=== PATIENT | male | born 1950 | race Caucasian/White ===

== ENCOUNTER 2019-04-19 11:16 | Day surgery (SDC) | payer MEDICARE, MEDICAID, SELFPAY ==
--- NOTE | 2019-04-19 | PATH_ITS ---
[facility] Accession Number: [id number] . 01 Material submitted: . PART A: colon - ASCENDING COLON POLYP PART B: colon - TRANSVERSE COLON POLYP PART C: colon - SIGMOID COLON POLYP . 02 Diagnosis: A. Ascending Colon Polyp, Biopsy: Tubular adenoma. . B. Transverse Colon, Polyp, Biopsy: Tubular adenoma. . C. Sigmoid Colon, Polyp, Biopsy: Tubular adenoma. MRV 04/20/2019 1304 Local . 02 Electronically signed: . Naomi Seaman MD, Pathologist NPI- [id number] . 01 Gross description: . Part A: ASCENDING COLON POLYP: Received in formalin are 2 fragment(s) of paredes, soft tissue measuring 0.2 x 0.2 x 0.2 cm to 0.3 x 0.2 x 0.2 cm submitted entirely in 1 cassette(s) Part B: TRANSVERSE COLON POLYP: Received in formalin are 3 fragment(s) of paredes, soft tissue measuring 0.1 x 0.1 x 0.1 cm to 0.3 x 0.2 x 0.2 cm submitted entirely in 1 cassette(s) Part C: SIGMOID COLON POLYP: Received in formalin is 1 fragment(s) of paredes, soft tissue measuring 0.3 x 0.2 x 0.2 cm submitted entirely in 1 cassette(s) /[facility] 04/19/2019 2229 Local . 02 Pathologist provided ICD-10: D12.2, D12.3, D12.5 . 02 CPT . 697680, 951461, 801234 Specimen Comment: A duplicate report has been generated due to demographic updates. Performed at: [address] [facility] [address], [place], [place] [id number] MD Stephane Wilson MD Phone: [phone] Performed at: 02 [facility] [id number] [place] [id number] MD Naomi Seaman MD Phone: [phone]
[2019-04-19 12:38] VITALS: BP 135/74; PULSE 78; RESP 16; TEMP 36.2; O2SAT 97; BMI 25.9
--- NOTE | 2019-04-19 12:54 | SUR.PREOP ---
Regarding med reconciliation, patient came in with list of meds, but no doses or times. Added med list with patient's best guess for doses.
[2019-04-19] MEDS: SODIUM CHLORIDE 0.9% 1,000 ML 21 ML IV (12:55)
--- NOTE | 2019-04-19 13:23 | PM.HP.1 ---
History of Present Illness History of Present Illness Date Patient Seen: 04/19/19 Time Patient Seen: 13:24 Chief complaint: [id number] Colonoscopy Narrative: History of large adenomatous polyps Patient History Medical History (Updated 04/19/19 @ 13:25 by Qamar Freeman MD) Bipolar 1 disorder (Acute) Family & Social History Social History: household members spouse Meds Home Medications and Allergies Home Medications Medication Instructions Recorded Confirmed Type aspirin 81 mg PO DAILY 04/19/19 04/19/19 History atorvastatin 20 mg PO BEDTIME 04/19/19 04/19/19 History bupropion HCl 75 mg PO DAILY 04/19/19 04/19/19 History esomeprazole magnesium [Nexium] 40 mg PO DAILY 04/19/19 04/19/19 History gabapentin 300 mg PO BID 04/19/19 04/19/19 History linaclotide [Linzess] 145 mcg PO DAILY 04/19/19 04/19/19 History magnesium 30 mg PO DAILY 04/19/19 04/19/19 History paroxetine HCl 25 mg PO DAILY 04/19/19 04/19/19 History risperidone 0.25 mg PO BEDTIME 04/19/19 04/19/19 History trazodone 50 mg PO BEDTIME 04/19/19 04/19/19 History Allergies Allergy/AdvReac Type Severity Reaction Status Date / Time No Known Drug Allergies Allergy Verified 04/19/19 12:46 Exam Vital Signs (past 8 hours): - 04/19/19 12:38 Temperature 97.1 F Pulse Rate 78 Respiratory Rate 16 Blood Pressure 135/74 Pulse Oximetry 97 Oxygen Delivery Method Room Air Oxygen Flow Rate 0 Narrative Exam Narrative: Oropharynx free of lesions Chest clear to auscultation percussion Cardiac exam reveals no S3 or murmur Assessment & Plan Assessment & Plan narrative: Follow-up screening colonoscopy for history of polyps. Risks, benefits, alternatives explained.
--- NOTE | 2019-04-19 13:25 | PM.OP.ENDO ---
Operative Date/Time/Diagnoses Date of procedure: 04/19/19 Time of procedure: 13:25 Pre-op diagnosis: See indication and findings Procedure & Clinicians Study performed: Colonoscopy Indications: History of polyps Surgeon: Qamar Freeman Procedure Notes Procedure in detail: After informed consent was obtained the patient was placed in left lateral decubitus position. The video colonoscope was introduced the rectum slowly advanced to the cecum. Preparation was good. On slow withdrawal mucosa was carefully examined. Scope was removed. The patient tolerated procedure well. Blood loss none Complications none Sedation Total sedation time 24 minutes Versed 3 mg fentanyl 100 mg IV titration Findings 1. Scattered diverticulosis in the sigmoid colon 2. 8 mm ascending colon polyp snared with sid snare and removed completely 3. 5 mm colon polyp in the transverse colon Jumbo biopsy removed completely 4. 5 mm polyp in the sigmoid colon Jumbo biopsy removed completely 5. Tattoo without any residual polyp at the hepatic flexure 6. Otherwise negative colonoscopy to cecum I expect these will all be adenomatous polyps and he will need follow-up colonoscopy in 3 years.
[2019-04-19] MEDS: fentaNYL 250 MCG/5 ML INJ IV (14:08)
[2019-04-19] MEDS: MIDAZOLAM 5 MG/5 ML VIAL IV (14:09)
[2019-04-19 14:35] VITALS: BP 122/73; PULSE 88; RESP 96; TEMP 37.2; O2SAT 14
[2019-04-19 14:40] VITALS: BP 131/75; PULSE 86; RESP 12; O2SAT 95
[2019-04-19 14:45] VITALS: BP 129/79; PULSE 87; RESP 9; O2SAT 95
[2019-04-19 15:00] VITALS: BP 127/73; PULSE 91; RESP 17; O2SAT 94
[2019-04-19 15:36] VITALS: BP 141/95; PULSE 80; RESP 20; TEMP 37.2; O2SAT 96
== END 2019-04-19 15:35 | disposition home or self-care (01) ==
PROVIDERS: PCP Physician Assistant Medical; Visit Provider Internal Medicine Gastroenterology
PROC: 0DJD8ZZ Inspection of Lower Intestinal Tract, Via Natural or Artificial Opening Endoscopic (ICD-10-PCS; CPT 45378; principal; 2019-04-19 13:30)
DX: Z86.010 Personal history of colon polyps (principal); Z12.11 Encounter for screening for malignant neoplasm of colon; K59.09 Other constipation; E78.5 Hyperlipidemia, unspecified; K21.9 Gastro-esophageal reflux disease without esophagitis; K57.30 Diverticulosis of large intestine without perforation or abscess without bleeding; D12.0 Benign neoplasm of cecum; D12.5 Benign neoplasm of sigmoid colon; D12.3 Benign neoplasm of transverse colon
CPT/HCPCS: 45385; 45380; J2250; J3010

== ENCOUNTER → 2022-04-28 11:15 | Outpatient (CLI) | payer MEDICARE, MEDICAID, SELFPAY ==
[2022-04-28 12:48] LABS: COVID19 -Nasal RAPID Negative (Negative)
== END ==
PROVIDERS: PCP Physician Assistant Medical; Visit Provider Surgery
DX: Z01.812 Encounter for preprocedural laboratory examination (principal); Z20.822 Contact with and (suspected) exposure to COVID-19
CPT/HCPCS: 87635; C9803

== ENCOUNTER 2022-04-29 08:52 | Day surgery (SDC) | payer MEDICARE, MEDICAID, SELFPAY ==
--- NOTE | 2022-04-29 | PATH_ITS ---
[facility] Accession Number: [id number] . 01 Material submitted: . colon - COLON POLYP AT 40CM . 01 Diagnosis: Colon Polyp at 40 cm, Biopsy: Tubular adenoma. MRV 04/30/2022 1607 Local . 01 Electronically signed: . Kiana Alejandro MD, Pathologist NPI- [id number] . 01 Gross description: . COLON POLYP AT 40CM: Received in formalin are 3 fragment(s) of paredes, soft tissue measuring 0.2 x 0.2 x 0.1 cm to 0.3 x 0.3 x 0.2 cm submitted entirely in 1 cassette(s) /[facility] 04/29/2022 2314 Local . 01 Pathologist provided ICD-10: D12.6 . 01 CPT . 452516 Specimen Comment: A courtesy copy of this report has been sent to [phone] Performed at: 01 [facility] [address] [place] [address], [place], [place] [id number] MD Stephane Wilson MD Phone: [phone]
--- NOTE | 2022-04-29 09:38 | PM.HP.1 ---
History of Present Illness History of Present Illness Date Patient Seen: 04/29/22 Chief complaint: Colonoscopy Narrative: History of colon polyps Patient History Medical History (Updated 04/19/19 @ 13:25 by Qamar Freeman MD) Bipolar 1 disorder Family & Social History Social History: household members spouse Meds Home Medications and Allergies Home Medications Medication Instructions Recorded Confirmed Type aspirin 81 mg tablet,delayed 81 mg PO DAILY 04/19/19 04/19/19 History release atorvastatin 20 mg tablet 20 mg PO BEDTIME 04/19/19 04/19/19 History bupropion HCl 75 mg tablet 75 mg PO DAILY 04/19/19 04/19/19 History esomeprazole magnesium 40 mg 40 mg PO DAILY 04/19/19 04/19/19 History capsule,delayed release (Nexium) gabapentin 300 mg capsule 300 mg PO BID 04/19/19 04/19/19 History linaclotide 145 mcg capsule 145 mcg PO DAILY 04/19/19 04/19/19 History (Linzess) magnesium 30 mg tablet 30 mg PO DAILY 04/19/19 04/19/19 History paroxetine HCl 25 mg 25 mg PO DAILY 04/19/19 04/19/19 History tablet,extended release 24 hr risperidone 0.25 mg tablet 0.25 mg PO BEDTIME 04/19/19 04/19/19 History trazodone 50 mg tablet 50 mg PO BEDTIME 04/19/19 04/19/19 History Allergies Allergy/AdvReac Type Severity Reaction Status Date / Time No Known Drug Allergies Allergy Verified 04/19/19 12:46 Exam Narrative Exam Narrative: Oropharynx free of lesions Chest clear to auscultation percussion Cardiac exam reveals no S3 or murmur Assessment & Plan Assessment & Plan narrative: History of adenomatous colon polyps need for follow-up colonoscopy. Previous large polyps with history of tattoo. Risks, benefits, alternatives have been explained. Time Spent With Patient Critical Care time: I spent a total of [] minutes of critical care time on this patient's care today; this time is exclusive of procedural time.
--- NOTE | 2022-04-29 09:39 | PM.OP.COLON ---
Operative Date/Time/Diagnoses Date of procedure: 04/29/22 Pre-op diagnosis: See indication and findings Procedure & Clinicians Study performed: Colonoscopy Indications: History of adenomatous colon polyps Surgeon: Qamar Freeman Procedure Notes Procedure in detail: After informed consent was obtained the patient was placed in left lateral decubitus position. The video colonoscope was introduced the rectum and slowly advanced cecum. On slow withdrawal mucosa was carefully examined. Preparation was good. The scope was removed. The patient tolerated procedure well. Blood loss none Complications none Sedation mac Findings 1. Tattoo at 70 cm from the anal verge. No residual polyp 2. 6 mm polyp at 40 cm biopsied x2 with Jumbo biopsy forceps and removed. 3. Scattered sigmoid diverticulosis 4. Otherwise negative colonoscopy to cecum Kevin should have follow-up colonoscopy in 7 years.
[2022-04-29] MEDS: LACTATED RINGERS 1,000 ML 84 ML IV (09:43)
[2022-04-29 09:47] VITALS: BMI 25.0
[2022-04-29 10:22] VITALS: BP 118/66; PULSE 79; RESP 24; TEMP 37.3; O2SAT 98
[2022-04-29 10:27] VITALS: BP 104/73; PULSE 80; RESP 21; O2SAT 99
[2022-04-29 10:32] VITALS: BP 134/81; PULSE 83; RESP 26; O2SAT 97
[2022-04-29 10:37] VITALS: BP 135/84; PULSE 83; RESP 21; TEMP 37.1; O2SAT 98
[2022-04-29 10:43] VITALS: BP 149/93; PULSE 81; RESP 18; TEMP 37.1; O2SAT 98
== END 2022-04-29 10:57 | disposition home or self-care (01) ==
PROVIDERS: PCP Physician Assistant Medical; Referring Provider Internal Medicine Gastroenterology; Visit Provider Internal Medicine Gastroenterology
PROC: 0DJD8ZZ Inspection of Lower Intestinal Tract, Via Natural or Artificial Opening Endoscopic (ICD-10-PCS; CPT 45378; principal; 2022-04-29 10:30)
DX: Z12.11 Encounter for screening for malignant neoplasm of colon (principal); Z86.010 Personal history of colon polyps; K57.30 Diverticulosis of large intestine without perforation or abscess without bleeding
CPT/HCPCS: 45380; J2704